=== PATIENT | female | born 1950 | race Caucasian/White ===

== ENCOUNTER 2019-04-27 10:34 | Emergency (ER) | payer OTHER, SELFPAY ==
[2019-04-27] VITALS (16 sets, daily range): BP systolic 79–150; BP diastolic 55–88; PULSE 64–83; RESP 16–22; TEMP 36.2; O2SAT 93–99
--- NOTE | 2019-04-27 11:00 | DI.RAD.S_ITS ---
PROCEDURE: XR WRIST LT MIN 3V INDICATIONS: injury TECHNIQUE: 3 views of the wrist were acquired. COMPARISON: None. FINDINGS: Bones: No fractures or dislocations. No suspicious bony lesions. Severe first CMC joint osteoarthritis. Scaphoid view: Not requested Soft tissues: No suspicious soft tissue calcifications. IMPRESSION: No fracture. No acute osseous lesion. If symptoms and/or clinical suspicion for pathology persists, further assessment with repeat radiographs (7-10 days) or advanced imaging (e.g. CT, MRI or bone scan) may be helpful. Dictated by: Mellisa Carson MD, PhD on 04/27/2019 at 11:50 Approved by: Mellisa Carson MD, PhD on 04/27/2019 at 11:52
--- NOTE | 2019-04-27 11:11 | DI.RAD.S_ITS ---
PROCEDURE: XR ELBOW LT 2V INDICATIONS: wrist pain fall TECHNIQUE: 2 views of the elbow were acquired. COMPARISON: None. FINDINGS: Bones: Displaced fracture of the proximal ulna. Nondisplaced fractures of the radial head. Soft tissues: No elbow joint effusion. No suspicious soft tissue calcifications. IMPRESSION: Proximal ulna and radial head fractures. Dictated by: Mellisa Carson MD, PhD on 04/27/2019 at 11:52 Approved by: Mellisa Carson MD, PhD on 04/27/2019 at 11:54
[2019-04-27] MEDS: HYDROMORPHONE 1 MG INJ 0.5 MG IV ×2 (11:22→12:30)
[2019-04-27] MEDS: ONDANSETRON 4 MG/2 ML INJ IV ×2 (12:55→14:53)
--- NOTE | 2019-04-27 12:56 | ED_ITS ---
HPI - Extremity Injury (Upper) General Chief Complaint: Extremity Injury, Upper Stated Complaint: Fell, hit head, states broke left arm Time Seen by Provider: 04/27/19 11:08 Source: patient Mode of arrival: wheelchair Limitations: no limitations History of Present Illness HPI narrative: Patient is a 69-year-old female who presents with left wrist and elbow pain. He was at the are noticeable when she tripped and fell landed with her underneath her. She did hit her head there was no real loss of consciousness but she did briefly pass out for about under a minute. She is not on any anti-platelet or anticoagulation medication. She has no nausea. She denies numbness or tingling in her hand. MD complaint: injury to: left and elbow Onset (ago): hour(s) Other injuries: head Related Data Home Medications Medication Instructions Recorded Confirmed ibuprofen #0 08/08/17 loratadine-pseudoephedrine 1 tab PO Q12H #0 08/08/17 [Claritin-D 12 Hour] triamterene-hydrochlorothiazid 04/27/19 Previous Rx's Medication Instructions Recorded [id number] 4 drp OTIC QID #10 ml 08/08/17 hydrocodone-acetaminophen [[place]] 1 tab PO Q4-6H PRN #14 tab 04/27/19 ondansetron 4 mg PO Q6-8H PRN #10 tab 04/27/19 Allergies Allergy/AdvReac Type Severity Reaction Status Date / Time cat dander [CAT DANDER] Allergy Unknown Verified 04/27/19 10:50 dog dander [DOG DANDER] Allergy Unknown Verified 04/27/19 10:50 Review of Systems Review of Systems ROS Unobtainable: All systems reviewed & are unremarkable except as noted in HPI and below Constitutional Denies chills, Denies fever(s), Denies lethargy and Denies weakness Eyes Denies change in vision, Denies eye discharge, Denies irritation and Denies loss of vision ENT Ears, Nose, Mouth, and Throat: Denies change in voice, Denies neck pain and Denies sore throat Cardiovascular Denies chest pain, Denies irregular heart rhythm, Denies lightheadedness, Denies palpitations, Denies dyspnea, Denies dyspnea on exertion and Denies orthopnea Respiratory Denies cough, Denies dyspnea, Denies dyspnea on exertion and Denies wheezing Gastrointestinal Gastrointestinal: Denies abdominal pain, Denies change in bowel habits, Denies diarrhea, Denies nausea and Denies vomiting Musculoskeletal Reports as per HPI and Denies neck pain Neurologic Denies loss of vision and Denies weakness Comments: No LOC Endocrine Denies palpitations Allergic/Immunologic Denies wheezing [facility] Medical History (Updated 04/27/19 @ 15:51 by Mirian Carroll DO) Patient denies significant medical history (Acute) Social History Smoking Status: Never smoker Social History Smoking Status: Never smoker Exam Initial Vital Signs Initial Vital Signs: Vital Signs Temperature 97.2 F L 04/27/19 10:44 Pulse Rate 70 04/27/19 10:44 Respiratory Rate 16 04/27/19 10:44 Blood Pressure 79/55 L 04/27/19 10:44 Pulse Oximetry 95 04/27/19 10:44 GENERAL: Well-appearing, well-nourished and in no acute distress. HEAD: Abrasion noted left periorbital area no crepitations no depression no other sign of trauma CARDIOVASCULAR: peripheral pulses in tact, cap refill <2 sec RESPIRATORY: No respiratory distress, speaks in full sentences without difficulty EXTREMITIES: Normal range of motion, no clubbing or edema. Neurovascularly intact Left upper extremity no wrist deformity actually able flex and extend wrist quite easily peripheral pulses intact. Pain at elbow. No pain at shoulder clavicle no clavicle step-offs. NEUROLOGICAL: Cranial nerves II through XII grossly intact. Normal gait and speech. SKIN: Warm, dry, no petechiae, no rashes or lesions. Procedures Orthopedic Fracture Reduction Fracture #1: Time Out Performed: Yes Side: left Fracture Reduction Location: radius and ulna Analgesia: procedural sedation Technique: direct manipulation Post-reduction neuro exam: intact and no change Post-reduction vascular exam: intact and no change Splint Applied: Yes Patient Tolerated Procedure: Well Orthopedic Splinting/Casting Injury #1: Side: left Upper Extremity Injury Location: forearm Upper Extremity Immobilizer: posterior splint Post splinting neuro exam: intact and no change Post splinting vascular exam: intact Placed by: Provider Procedural Sedation Patient Age: Patient is 5yrs or older Consent signed: Yes Time out performed: Yes Indication: fracture/dislocation reduction ASA Class: I Mallampati Airway Classification: Class I Preparation: monitoring analyst applied, pulse oximeter, capnometry used and supplemental O2 applied IV Propofol dose (mg): 50 Complications: none Course Orders Ordered: ED Orders 04/27/19 11:00 XR wrist LT min 3V Stat 04/27/19 11:11 XR elbow LT min 3V Stat 04/27/19 13:27 XR elbow LT 2V Stat Discontinued Medications Hydromorphone HCl (Dilaudid) 0.5 mg IM NOW ONE Stop: 04/27/19 11:12 Last Admin: 04/27/19 11:59 Dose: Not Given Hydromorphone HCl (Dilaudid) 0.5 mg IV NOW ONE Stop: 04/27/19 11:22 Last Admin: 04/27/19 11:22 Dose: 0.5 mg Hydromorphone HCl (Dilaudid) 0.5 mg IV NOW ONE Stop: 04/27/19 12:29 Last Admin: 04/27/19 12:30 Dose: 0.5 mg Hydromorphone HCl (Dilaudid) 1 mg IV NOW ONE Stop: 04/27/19 13:28 Last Admin: 04/27/19 13:48 Dose: 1 mg Ondansetron HCl (Zofran Odt) 4 mg SL NOW ONE Stop: 04/27/19 12:43 Last Admin: 04/27/19 13:51 Dose: Not Given Ondansetron HCl (Zofran) 4 mg IV NOW ONE Stop: 04/27/19 12:47 Last Admin: 04/27/19 12:55 Dose: 4 mg Ondansetron HCl (Zofran) 4 mg IV NOW ONE Stop: 04/27/19 14:44 Last Admin: 04/27/19 14:53 Dose: 4 mg Propofol (Diprivan) 50 mg IV NOW ONE Stop: 04/27/19 13:09 Last Admin: 04/27/19 13:22 Dose: 50 mg Consultations Consultation #1: Dr. Smith on-call orthopedics has been updated on patient's symptoms test results. Agrees with splinting and outpatient follow-up. Time: 12:55 Vital Signs - 8 hr 04/27/19 10:44 04/27/19 10:50 04/27/19 11:15 Temperature 97.2 F L Pulse Rate 70 78 82 Respiratory Rate 16 18 16 Blood Pressure 79/55 L Blood Pressure [Left Arm] 113/68 118/68 Pulse Oximetry 95 98 99 04/27/19 12:00 04/27/19 13:00 04/27/19 13:10 Temperature Pulse Rate 78 81 66 Respiratory Rate 16 16 22 Blood Pressure Blood Pressure [Left Arm] 115/66 122/65 Pulse Oximetry 99 99 04/27/19 13:17 04/27/19 13:20 04/27/19 13:25 Temperature Pulse Rate 68 64 64 Respiratory Rate 16 18 17 Blood Pressure Blood Pressure [Left Arm] 115/68 126/74 130/79 Pulse Oximetry 93 97 98 04/27/19 13:30 04/27/19 13:35 04/27/19 13:40 Temperature Pulse Rate 71 67 71 Respiratory Rate 17 16 17 Blood Pressure Blood Pressure [Left Arm] 141/64 H 143/83 H 135/88 Pulse Oximetry 99 99 99 04/27/19 13:45 04/27/19 13:50 04/27/19 14:41 Temperature Pulse Rate 81 83 74 Respiratory Rate 17 16 17 Blood Pressure Blood Pressure [Left Arm] 150/76 H 132/73 121/60 Pulse Oximetry 96 99 95 04/27/19 15:26 Temperature Pulse Rate 82 Respiratory Rate 16 Blood Pressure 117/67 Blood Pressure [Left Arm] Pulse Oximetry 98 MDM - Extremity Injury (Upper) Lab Data Point of Care Testing Test Results Not applicable Imaging Data Left elbow: Radiologist's impression: PROCEDURE: XR ELBOW LT 2V INDICATIONS: wrist pain fall TECHNIQUE: 2 views of the elbow were acquired. COMPARISON: None. FINDINGS: Bones: Displaced fracture of the proximal ulna. Nondisplaced fractures of the radial head. Soft tissues: No elbow joint effusion. No suspicious soft tissue calcifications. IMPRESSION: Proximal ulna and radial head fractures. Dictated by: Mellisa Carson MD, PhD on 04/27/2019 at 11:52 Left wrist: Radiologist's impression: PROCEDURE: XR WRIST LT MIN 3V INDICATIONS: injury TECHNIQUE: 3 views of the wrist were acquired. COMPARISON: None. FINDINGS: Bones: No fractures or dislocations. No suspicious bony lesions. Severe first CMC joint osteoarthritis. Scaphoid view: Not requested Soft tissues: No suspicious soft tissue calcifications. IMPRESSION: No fracture. No acute osseous lesion. If symptoms and/or clinical suspicion for pathology persists, further assessment with repeat radiographs (7-10 days) or advanced imaging (e.g. CT, MRI or bone scan) may be helpful. Dictated by: Mellisa Carson MD, PhD on 04/27/2019 at 11:50 Left elbow 2. : Radiologist's impression: PROCEDURE: XR ELBOW LT 2V INDICATIONS: splint/reduction TECHNIQUE: 3 views of the elbow were acquired. COMPARISON: [facility], CR, XR ELBOW LT 2V, 04/27/2019, 11:23. FINDINGS: Interval placement of an overlying splint is evident. There continues to be a transverse fracture through the proximal shaft of the ulna. An additional fracture involving the head of the radius also appears to be present. Bony alignment is unchanged with continued anterior angulation of the distal ulnar fracture fragment and posterior dislocation of the radial head fracture fragment. There is an elbow effusion. No unexpected radiopaque foreign bodies are appreciated. IMPRESSION: Unchanged alignment of a complex fracture involving the proximal ulna and radius. Dictated by: Manan Metcalf M.D. on 04/27/2019 at 13:32 MDM Narrative Medical decision making narrative: Patient having significant pain required conscious sedation for splinting. She still had pain after splinting and was given Dilaudid however all medications got up with her she was quite sleepy afterwards nauseated at times. However she did wake up was alert and able to answer questions appropriately. She was given a disc with her images. She is from out of town a [place] home state [place]. Nonetheless she is given orthopedic referral and follow-up. Discharge Plan Departure Patient Disposition: Home Clinical Impression: Closed fracture of left proximal radius and ulna Qualifiers: Encounter type: initial encounter Qualified Code(s): S52.002A - Unspecified fracture of upper end of left ulna, initial encounter for closed fracture Discharge Date/Time: 04/27/19 15:27 Interventions: ED Discharge Assessment Last Done: 04/27/19 15:26 Instructions: DI for Elbow Fracture Activity Restrictions/Additional Instructions: *You have been diagnosed with left proximal ulnar and radial fracture *What to do: Keep arm in a splint at all times. Wear sling while active sling may help you while sleeping as well. This may require surgery. Ice every 20-30 minutes through the splint Elevated *Continue to take medications as directed [place] 1 tablet every 4 hours or 2 tablets every 6 hours *Follow up with Orthopedics [employer] consultant today to schedule follow-up appointment, or see her primary care provider at home who can arrange for orthopedic follow-up *Return to ER if you should have increasing pain numbness tingling in his fingertips inability to move fingers or any new, worsening or concerning symptoms CONTROLLED SUBSTANCE DISCHARGE (Narcotoic/benzodiazepine/Flexeril/Phenergan) 1. You have been prescribed narcotic medications, it does have acetaminophen/Tylenol/paracetamol in it so do not take extra Tylenol or Tylenol containing products 2. Please understand that we cannot provide further refills of narcotics, benzodiazepines or controlled substances through the ED and her pain management will need to be through your provider. 3. While on these medications you cannot drive or operate heavy machinery. 4. You cannot sign legal documents or perform any duties such as this. 5. As long as you're taking opiate pain medications he should also be taking a stool softener such as Colace, Dulcolax, MiraLAX or prune juice, to help avoid constipation. Prescriptions: New hydrocodone-acetaminophen [[place]] 5-325 mg tablet 1 tab PO Q4-6H PRN (Reason: pain) Qty: 14 RF: 0 ondansetron 4 mg tablet,disintegrating 4 mg PO Q6-8H PRN (Reason: nausea and vomiting) Qty: 10 RF: 0 No Action loratadine-pseudoephedrine [Claritin-D 12 Hour] 5 MG/120 MG tablet extended release 12 hr 1 tab PO Q12H Qty: 0 RF: 0 ibuprofen 400 MG tablet Qty: 0 RF: 0 [id number] 10 ML drops,suspension 4 drp OTIC QID Qty: 10 RF: 0 triamterene-hydrochlorothiazid 37.5-25 mg tablet RF: 0 Referrals: [facility] [Provider Group]
[2019-04-27] MEDS: PROPOFOL 200 MG/20 ML VIAL 50 MG IV (13:22)
--- NOTE | 2019-04-27 13:27 | DI.RAD.S_ITS ---
PROCEDURE: XR ELBOW LT 2V INDICATIONS: splint/reduction TECHNIQUE: 3 views of the elbow were acquired. COMPARISON: [facility], CR, XR ELBOW LT 2V, 04/27/2019, 11:23. FINDINGS: Interval placement of an overlying splint is evident. There continues to be a transverse fracture through the proximal shaft of the ulna. An additional fracture involving the head of the radius also appears to be present. Bony alignment is unchanged with continued anterior angulation of the distal ulnar fracture fragment and posterior dislocation of the radial head fracture fragment. There is an elbow effusion. No unexpected radiopaque foreign bodies are appreciated. IMPRESSION: Unchanged alignment of a complex fracture involving the proximal ulna and radius. Dictated by: Manan Metcalf M.D. on 04/27/2019 at 13:32 Approved by: Manan Metcalf M.D. on 04/27/2019 at 13:34
[2019-04-27] MEDS: HYDROMORPHONE 1 MG INJ IV (13:48)
== END 2019-04-27 15:27 | disposition home or self-care (01) ==
PROVIDERS: Emergency Provider Emergency Medicine
DX: S52.002A Unspecified fracture of upper end of left ulna, initial encounter for closed fracture (principal); S09.90XA Unspecified injury of head, initial encounter; W01.0XXA Fall on same level from slipping, tripping and stumbling without subsequent striking against object, initial encounter
CPT/HCPCS: 24999; 29105; 36591; 73070; 73080; 73110; 94770; 96374; 96375; 96376; 99152; 99153; 99285; J1170; J2405; J2704

== ENCOUNTER 2019-04-28 12:26 | Emergency (ER) | payer OTHER, SELFPAY ==
[2019-04-28 12:30] VITALS: BP 152/77; PULSE 110; RESP 20; TEMP 36.9; O2SAT 97
--- NOTE | 2019-04-28 12:51 | ED_ITS ---
HPI - Recheck/Abnormal Lab/Rx General Chief Complaint: Recheck/Abnormal Lab/Rx Stated Complaint: recheck splint/meds/L arm injury Time Seen by Provider: 04/28/19 12:31 Source: patient Mode of arrival: wheelchair Limitations: no limitations History of Present Illness HPI narrative: Patient is 69-year-old female presenting with worsening left elbow pain. She was seen evaluated here yesterday diagnosed with proximal left radial and ulna fracture. She continues to have increased pain pain is uncontrolled despite [place]. She states the oxycodone medication makes her nauseous and vomit. She was given Zofran last night as well. She has no numbness or tingling or weakness in her fingers. Related Data Home Medications Medication Instructions Recorded Confirmed ibuprofen #0 08/08/17 loratadine-pseudoephedrine 1 tab PO Q12H #0 08/08/17 [Claritin-D 12 Hour] triamterene-hydrochlorothiazid 04/27/19 Previous Rx's Medication Instructions Recorded [id number] 4 drp OTIC QID #10 ml 08/08/17 hydrocodone-acetaminophen [[place]] 1 tab PO Q4-6H PRN #14 tab 04/27/19 ondansetron 4 mg PO Q6-8H PRN #10 tab 04/27/19 promethazine 25 mg PO Q6H PRN #10 tab 04/28/19 promethazine 25 mg DC Q6H PRN #12 each 04/28/19 Allergies Allergy/AdvReac Type Severity Reaction Status Date / Time cat dander [CAT DANDER] Allergy Unknown Verified 04/27/19 10:50 dog dander [DOG DANDER] Allergy Unknown Verified 04/27/19 10:50 Review of Systems Review of Systems GENERAL: Denies chills,fever HEENT: Denies throat pain RESPIRATORY: Denies dyspnea, cough, wheezing CARDIOVASCULAR: Denies chest pain, palpitations GASTROINTESTINAL: Denies nausea, vomiting MUSCULOSKELETAL: See HPI SKIN: No rash, no laceration, no pruritus NEUROLOGIC: Denies weakness, dizziness, headache, numbness 8 point review of systems is negative except for those stated above and HPI PFSH Medical History Patient denies significant medical history (Acute) Social History Smoking Status: Never smoker Social History Smoking Status: Never smoker Exam Initial Vital Signs Initial Vital Signs: Vital Signs Temperature 98.4 F 04/28/19 12:30 Pulse Rate 110 H 04/28/19 12:30 Respiratory Rate 20 04/28/19 12:30 Blood Pressure 152/77 H 04/28/19 12:30 Pulse Oximetry 97 04/28/19 12:30 GENERAL: Well-appearing, well-nourished and in no acute distress. CARDIOVASCULAR: peripheral pulses in tact, cap refill <2 sec RESPIRATORY: No respiratory distress, speaks in full sentences without difficulty EXTREMITIES: Normal range of motion, no clubbing or edema. Neurovascularly intact Left upper extremity in sling and splint able to move fingers cap refill less than 2 seconds NEUROLOGICAL: Cranial nerves II through XII grossly intact. Normal gait and speech. SKIN: Warm, dry, no petechiae, no rashes or lesions. Course Orders Ordered: Discontinued Medications Hydromorphone HCl (Dilaudid) 1 mg IM NOW ONE Stop: 04/28/19 12:32 Last Admin: 04/28/19 13:00 Dose: Not Given Hydromorphone HCl (Dilaudid) 1 mg IV NOW ONE Stop: 04/28/19 12:36 Last Admin: 04/28/19 12:59 Dose: 1 mg Ondansetron HCl (Zofran) 4 mg IV NOW ONE Stop: 04/28/19 12:36 Last Admin: 04/28/19 12:59 Dose: 4 mg Ondansetron HCl (Zofran) 4 mg IV NOW ONE Stop: 04/28/19 14:05 Last Admin: 04/28/19 14:07 Dose: 4 mg Ondansetron HCl (Zofran) 4 mg IV NOW ONE Stop: 04/28/19 14:05 Last Admin: 04/28/19 14:09 Dose: Not Given Consultations Consultation #1: [facility] has looked at x-rays. Patient will have surgery tomorrow as outpatient at 9:00 a.m.. Time: 13:46 Vital Signs - 8 hr 04/28/19 12:30 04/28/19 14:00 04/28/19 15:10 Temperature 98.4 F Pulse Rate 110 H 61 71 Respiratory Rate 20 16 14 Blood Pressure 152/77 H Blood Pressure [Right Arm] 157/68 H 162/79 H Pulse Oximetry 97 98 96 MDM - Recheck/Abnormal Lab/Rx MDM Narrative Medical decision making narrative: Patient is extremely sensitive to all dimitry cotic medications. She continues to be nauseous and vomit at times. She is given Zofran and Phenergan both suppository orally. I recommended she increase her pain medication to 2 tablets of [place] every 6 hours to see if that helps her. I also recommended that she take anti nausea medication at least 30 minutes prior to her pain medication. I have explained all of this to patient and her son. At this time she has no neurologic deficits she can continue to move her finger she has no numbness or tingling. Discharge Plan Departure Patient Disposition: Home Clinical Impression: Closed fracture of left proximal radius and ulna Qualifiers: Encounter type: subsequent encounter Fracture healing: with routine healing Qualified Code(s): S52.102D - Unspecified fracture of upper end of left radius, subsequent encounter for closed fracture with routine healing Discharge Date/Time: 04/28/19 15:29 Interventions: ED Discharge Assessment Last Done: 04/28/19 15:28 Instructions: DI for Elbow Fracture Activity Restrictions/Additional Instructions: SURGERY TOMORROW AT 9:00 A.M. check-in is at 8:00 a.m. at registration NOT THE EMERGENCY DEPARTMENT * do not eat or drink anything after midnight *Take medication as prescribed: [place] 2 tablets every 6 hours if needed for severe pain Zofran 8 mg 30 minutes prior to pain medication, you may take this every 6-8 hours *Dr. Smith, is the orthopedic on-call who will be performing your surgery CONTROLLED SUBSTANCE DISCHARGE (Narcotoic/benzodiazepine/Flexeril/Phenergan) 1. You have been prescribed narcotic medications, it does have olya taminophen/Tylenol/paracetamol in it so do not take extra Tylenol or Tylenol containing products 2. Please understand that we cannot provide further refills of narcotics, benzodiazepines or controlled substances through the ED and her pain management will need to be through your provider. 3. While on these medications you cannot drive or operate heavy machinery. 4. You cannot sign legal documents or perform any duties such as this. 5. As long as you're taking opiate pain medications he should also be taking a stool softener such as Colace, Dulcolax, MiraLAX or prune juice, to help avoid constipation. Prescriptions: New promethazine 25 mg suppository 25 mg DC Q6H PRN (Reason: nausea and vomiting) Qty: 12 RF: 0 promethazine 25 mg tablet 25 mg PO Q6H PRN (Reason: nausea and vomiting) Qty: 10 RF: 0 No Action loratadine-pseudoephedrine [Claritin-D 12 Hour] 5 MG/120 MG tablet extended release 12 hr 1 tab PO Q12H Qty: 0 RF: 0 ibuprofen 400 MG tablet Qty: 0 RF: 0 gjabmqll-nhoobjjlm-ZU 10 ML drops,suspension 4 drp OTIC QID Qty: 10 RF: 0 triamterene-hydrochlorothiazid 37.5-25 mg tablet RF: 0 hydrocodone-acetaminophen [[place]] 5-325 mg tablet 1 tab PO Q4-6H PRN (Reason: pain) Qty: 14 RF: 0 ondansetron 4 mg tablet,disintegrating 4 mg PO Q6-8H PRN (Reason: nausea and vomiting) Qty: 10 RF: 0 Referrals: Js Smith MD [Physician] -
[2019-04-28] MEDS: HYDROMORPHONE 1 MG INJ IV (12:59)
[2019-04-28] MEDS: ONDANSETRON 4 MG/2 ML INJ IV ×2 (12:59→14:07)
[2019-04-28 14:00] VITALS: BP 157/68; PULSE 61; RESP 16; O2SAT 98
[2019-04-28 15:10] VITALS: BP 162/79; PULSE 71; RESP 14; O2SAT 96
== END 2019-04-28 15:29 | disposition home or self-care (01) ==
PROVIDERS: Emergency Provider Emergency Medicine
DX: S52.002D Unspecified fracture of upper end of left ulna, subsequent encounter for closed fracture with routine healing (principal); W01.0XXD Fall on same level from slipping, tripping and stumbling without subsequent striking against object, subsequent encounter
CPT/HCPCS: 96374; 96375; 96376; 99282; 99284; J1170; J2405

== ENCOUNTER 2019-04-29 08:14 | Day surgery (SDC) | payer OTHER, SELFPAY ==
[2019-04-29] MEDS: LACTATED RINGERS 1,000 ML 42 ML IV (08:44)
[2019-04-29] MEDS: SCOPOLAMINE 1 PATCH TOP (08:44)
[2019-04-29 08:45] VITALS: BP 139/80; PULSE 81; RESP 18; TEMP 36.6; O2SAT 97
[2019-04-29 08:47] VITALS: BMI 23.1
--- NOTE | 2019-04-29 08:58 | PM.PREOP ---
Pre-operative Note Interval Note History & Physical reviewed/Exam performed by Physician: Yes Changes to H&P: No
--- NOTE | 2019-04-29 08:58 | PM.HP.1 ---
History of Present Illness Date Patient Seen: 04/29/19 Time Patient Seen: 08:29 [place] [facility] [place] 69-year-old female who fell off a porch landing on her left arm. Patient had deformity and pain after the fall and was brought in to the emergency room. X-ray showed a a displaced proximal ulnar fracture as well as possible injury to the radial head with posterior dislocation. Due to the injury we recommended surgical treatment. Patient denies any significant other injuries from the fall. Has some abrasions to her face but denies any injury to the right upper extremity or bilateral lower extremities Patient History Medical History Patient denies significant medical history (Acute) Social History household members: none Smoking Status: Never smoker Family & Social History Social History: household members none Prior Living Arrangements House Tobacco & Substance use: Smoking Status Never smoker alcohol intake frequency a few times a week Substance Use Type does not use Meds Home Medications Medication Instructions Recorded Confirmed Type Claritin-D 12 Hour 1 tab PO Q12H #0 08/08/17 History ibuprofen #0 08/08/17 History exypjecl-[id number]-RI 4 drp OTIC QID #10 ml 08/08/17 Rx hydrocodone-acetaminophen [Oneida] 1 tab PO Q4-6H PRN #14 tab 04/27/19 04/29/19 Rx ondansetron 4 mg PO Q6-8H PRN #10 tab 04/27/19 04/29/19 Rx triamterene-hydrochlorothiazid 04/27/19 History promethazine 25 mg PO Q6H PRN #10 tab 04/28/19 Rx promethazine 25 mg CO Q6H PRN #12 each 04/28/19 Rx Allergies Allergy/AdvReac Type Severity Reaction Status Date / Time cat dander [CAT DANDER] Allergy Unknown Verified 04/29/19 09:00 dog dander [DOG DANDER] Allergy Unknown Verified 04/27/19 10:50 IVP dye Allergy Unknown Uncoded 04/29/19 08:59 Review of Systems Review of Systems All systems reviewed & are unremarkable except as noted in HPI and below Exam Vital Signs (past 8 hours): - 04/29/19 08:45 Temperature 98 F Pulse Rate 81 Respiratory Rate 18 Blood Pressure 139/80 Pulse Oximetry 97 Oxygen Delivery Method Room Air Narrative Exam Narrative: On physical exam, 69-year-old female who is alert and oriented x3. No apparent distress. Patient is in a posterior splint immobilizing the upper extremity. Patient is able to flex and extend her fingers. As well as the thumb. Compartments are soft. No sign of any open wounds or skin breakdown. Some superficial abrasions from the fall but no open wounds. Able to move the shoulder without any significant discomfort. Nontender to palpation over the clavicle. Assessment & Plan Assessment & Plan narrative: 69-year-old female status post fall with a proximal ulna and radial fracture as well as dislocation of the radial head. Due to these injuries is something we recommend open reduction internal fixation as well as reduction of the radial head. I went over the risks and limitations associated with the procedure. All the patient's questions and concerns were answered to her full satisfaction. Risks include but not limited to wound complications, infection, failure of hardware, nonunion and malunion, damage to arteries and nerves and persistent pain. Consent form was freely obtained. Time Spent With Patient Time with patient: 15-24 minutes
--- NOTE | 2019-04-29 09:03 | P.HP_ITS ---
History of Present Illness Date Patient Seen: 04/29/19 Time Patient Seen: 08:29 [place] [facility] [place]: 69-year-old female who fell off a porch landing on her left arm. Patient had deformity and pain after the fall and was brought in to the emergency room. X-ray showed a a displaced proximal ulnar fracture as well as possible injury to the radial head with posterior dislocation. Due to the injury we recommended surgical treatment. Patient denies any significant other injuries from the fall. Has some abrasions to her face but denies any injury to the right upper extremity or bilateral lower extremities Patient History Medical History Patient denies significant medical history (Acute) Social History household members: none Smoking Status: Never smoker Family & Social History Social History: household members none Prior Living Arrangements House Tobacco & Substance use: Smoking Status Never smoker alcohol intake frequency a few times a week Substance Use Type does not use Meds Home Medications Medication Instructions Recorded Confirmed Type Claritin-D 12 Hour 1 tab PO Q12H #0 08/08/17 History ibuprofen #0 08/08/17 History ptgzcrkl-[id number]-ML 4 drp OTIC QID #10 ml 08/08/17 Rx hydrocodone-acetaminophen [Joiner] 1 tab PO Q4-6H PRN #14 tab 04/27/19 04/29/19 Rx ondansetron 4 mg PO Q6-8H PRN #10 tab 04/27/19 04/29/19 Rx triamterene-hydrochlorothiazid 04/27/19 History promethazine 25 mg PO Q6H PRN #10 tab 04/28/19 Rx promethazine [address] Q6H PRN #12 each 04/28/19 Rx Allergies Allergy/AdvReac Type Severity Reaction Status Date / Time cat dander [CAT DANDER] Allergy Unknown Verified 04/29/19 09:00 dog dander [DOG DANDER] Allergy Unknown Verified 04/27/19 10:50 IVP dye Allergy Unknown Uncoded 04/29/19 08:59 Review of Systems Review of Systems All systems reviewed & are unremarkable except as noted in HPI and below Exam Vital Signs (past 8 hours): - 04/29/19 08:45 Temperature 98 F Pulse Rate 81 Respiratory Rate 18 Blood Pressure 139/80 Pulse Oximetry 97 Oxygen Delivery Method Room Air Narrative Exam Narrative: On physical exam, 69-year-old female who is alert and oriented x3. No apparent distress. Patient is in a posterior splint immobilizing the upper extremity. Patient is able to flex and extend her fingers. As well as the thumb. Compartments are soft. No sign of any open wounds or skin breakdown. Some superficial abrasions from the fall but no open wounds. Able to move the shoulder without any significant discomfort. Nontender to palpation over the clavicle. Assessment & Plan Assessment & Plan narrative: 69-year-old female status post fall with a proximal ulna and radial fracture as well as dislocation of the radial head. Due to these injuries is something we recommend open reduction internal fixation as well as reduction of the radial head. I went over the risks and limitations associated with the procedure. All the patient's questions and concerns were answered to her full satisfaction. Risks include but not limited to wound complications, infection, failure of hardware, nonunion and malunion, damage to arteries and nerves and persistent pain. Consent form was freely obtained. Time Spent With Patient Time with patient: 15-24 minutes
[2019-04-29] MEDS: MIDAZOLAM 2 MG/2 ML VIAL IV (09:06)
[2019-04-29] MEDS: CEFAZOLIN 2 GM/100 ML FROZ.PIGGY IV (09:19)
--- NOTE | 2019-04-29 09:45 | P.PCN_ITS ---
Procedures Date/Time Date of procedure: 04/29/19 Time of procedure: 09:00 Nerve Block Time out performed: Yes Local anesthetic used: other (12mL 0.5% ropivacaine, 8mL 2% lidocaine) Location of anesthetic used: interscalene Amount of anesthesia used (mL): 20 Nerve blocks: brachial plexus (interscalene) Procedure successful: Yes Patient tolerated procedure: well Complications: none Additional comments: LEFT Brachial plexus nerve block for post operative pain management. Risks and benefits discussed, including bleeding, infection, intravascular injection, nerve damage, block failure. Standard ASA monitors, NC O2. Pt supine. Chloroprep site preparation, sterile technique. Brachial plexus identified with US guidance, traced from supraclavicular to interscalene. 1mL 2% lidocaine skin wheal. 22g x 50mm Pajunk advanced with in-plane US gu idance to brachial plexus. Negative aspiration. LA injected with intermittent negative aspiration. Good LA spread noted on US. No pain, no paraesthesia. Pt tolerated procedure well. Vital signs stable.
--- NOTE | 2019-04-29 09:52 | SUR.OPER ---
Lateral on padded OR bed with jackson bag positioner, head on pillow, gel axillary roll in place, bottom leg bent with gel pad under knee to foot, upper leg straight and supported with pillows. Operative arm under control of surgeon. Non-operative arm secured on padded arm board. Safety belt at hip, tape over blanket securing lower legs.
--- NOTE | 2019-04-29 09:52 | SUR.PREOP ---
Block start time [06] . Monitoring initiated and maintained throughout procedure. Oxygen and medications given per anesthesiologist instructions. Patient remained stable throughout procedure, no adverse reactions noted. Block end time [14]. Pt to OR in stable condition.
[2019-04-29] MEDS: BUPIVACAINE 0.5% W/ EPI (PF) VIAL 30 ML INJ (09:58)
[2019-04-29 11:07] VITALS: BP 109/61; PULSE 64; RESP 20; TEMP 36.7; O2SAT 97
[2019-04-29 11:11] VITALS: BP 122/70; PULSE 66; RESP 16; O2SAT 96
--- NOTE | 2019-04-29 11:11 | DI.RAD.S_ITS ---
PROCEDURE: XR ELBOW LT 2V INDICATIONS: s/p ORIF TECHNIQUE: 2 views of the elbow were acquired. COMPARISON: [facility], CR, XR ELBOW LT 2V, 04/27/2019, 11:23. [facility], CR, XR ELBOW LT 2V, 04/27/2019, 13:54. FINDINGS: Bones: On this postoperative study, plate and screw fixation is seen of the proximal ulna, with improved anatomic alignment. There remains a moderately displaced radial head fracture. Soft tissues: Overlying soft tissue abnormalities are seen. The overlying casting material limits evaluation of fine detail. IMPRESSION: Postoperative study, with improved anatomic alignment. A moderately displaced radial head fracture is seen. Dictated by: Gary Alva M.D. on 04/29/2019 at 10:53 Approved by: Gary Alva M.D. on 04/29/2019 at 10:55
--- NOTE | 2019-04-29 11:11 | PM.OP.1 ---
Operative Date/Time/Diagnoses Date of procedure: 04/29/19 Time of procedure: 09:00 Pre-op diagnosis: Monteggia fx of the left forearm. Patient had a comminuted proximal ulna fracture with dislocation of the proximal radial ulnar joint posterior dislocation of the radial head with a minimally displaced fracture involving the radial head. Post-op diagnosis: same Procedure & Clinicians Procedure: Open reduction internal fixation of the proximal ulna fracture. Open reduction of the radial head dislocation. Closed reduction with manipulation of the minimally displaced radial head fracture. Same procedure as scheduled: Yes Indications: Monteggia fracture left arm Surgeon: Js Smith Click Yes if Unassisted: Yes Anesthesia Type: General Operative Notes Findings: Fracture of the proximal ulna with dislocation of the proximal radial ulnar joint Closure Type: primary Specimen(s): none sent Prosthetic devices, grafts, tissues, transplants, or devices: Olecranon plate Applied: implant(s) Estimated Blood Loss (mL): 5 Blood products transfused: none Tourniquet time (min): 68 Procedure in detail: On date of service, patient was met in the holding area where her operative site was signed and witnessed by the OR staff. The surgeries once again discussed with the patient and any remaining questions or concerns she had were answered fully. Patient was taken back to the operating theater placed in the operating table in a supine position. Great care was taken to ensure that all bony prominences appropriately padded. A well-padded tourniquet was placed up along the upper extremity Time-out was performed verifying patient's name, procedure, and operative site. Patient was placed into the lateral position and a beanbag was used to secure her. Axilla roll was placed. Left arm was then prepped and draped in the normal sterile fashion. Esmarch was used to exsanguinate the limb and the tourniquet was turned up to 250 mm of mercury. Posterior incision was made starting proximal to the tip of the olecranon and following the ulnar shaft. Ten blade was used to incise through skin and fascial tissue. Electrocautery used to achieve hemostasis and then retractors were placed. Continued sharp dissection was performed releasing some of the fascial tissue from around the proximal ulna. Fracture did not involve the joint space but did involve distal to the joint. There was quite a bit of comminution. Two point reduction forceps were used to reduce the multiple fragments bringing the ulna back out to length. Blunt dissection was used to expose the radial head. We were able to reduce the radial head. There was a nondisplaced fracture involving the radial head no sign of any loose bodies between the radial head and the capitellum. The joint space was copiously irrigated to remove any soft tissue. X-rays were used to evaluate the overall alignment of the ulna as well as the radial head position. Once we were satisfied with the overall reduction with a 2 point reduction forceps of plate was provisionally fixated onto the bone and additional x-rays were obtained. Once were satisfied with the reduction as well as plate positioning, the plate was secured both distally and proximally to the fracture providing secure fixation of the comminuted proximal ulnar fracture. Throughout this procedure multiple AP and lateral views were obtained verifying maintenance of reduction as well as appropriate screw length. Final x-rays were obtained. Elbow was taken through range of motion and was felt to be stable particularly in regards to the radial head. None of the proximal screws were intra-articular. The wound was copiously irrigated and then closed in a layered fashion. Patient's arm was cleaned dried dressed and patient was placed into a posterior splint. Patient was taken to the PACU in stable condition. Complications: none Condition: stable Disposition: PACU Plan for aftercare: Patient will be in a posterior splint for 1-2 weeks. This will then be converted over to a hinged elbow brace.
[2019-04-29 11:22] VITALS: BP 140/73; PULSE 74; RESP 17; O2SAT 96
[2019-04-29 11:27] VITALS: BP 144/73; PULSE 67; RESP 16; TEMP 36.6; O2SAT 95
[2019-04-29 12:15] VITALS: BP 130/69; PULSE 65; RESP 16; TEMP 36.9; O2SAT 97
--- NOTE | 2019-04-29 12:44 | SUR.PHASEII ---
Late entry: Son and friend brought in. Discharge instructions discussed extensively with both, all voiced an understanding. Assisted pt to dress, and to use rest room. Pt left when ready and left in stable condition.
== END 2019-04-29 12:30 | disposition home or self-care (01) ==
LOC: AC 11:10 → OR 05-01 08:51
PROVIDERS: Visit Provider Orthopaedic Surgery
PROC: 0RSM04Z Reposition Left Elbow Joint with Internal Fixation Device, Open Approach (ICD-10-PCS; CPT 24635; principal; 2019-04-29 09:00)
DX: S52.272A Monteggia's fracture of left ulna, initial encounter for closed fracture (principal); G89.18 Other acute postprocedural pain; W10.8XXA Fall (on) (from) other stairs and steps, initial encounter
CPT/HCPCS: 24635; 64415; 73070; G0378; G0379; J0690; J1100; J2250; J2405; J2704; J3010

== ENCOUNTER 2022-02-15 07:13 | Emergency (ER) | payer OTHER, SELFPAY ==
[2022-02-15 07:15] VITALS: BP 167/82; PULSE 95; RESP 20; TEMP 36.8; O2SAT 93; BMI 25.8
--- NOTE | 2022-02-15 07:25 | ED.GENADULT ---
HPI - General Adult General Chief complaint: Shortness of Breath/Dyspnea Stated complaint: asthma, cant breathe Time Seen by Provider: 02/15/22 07:20 Source: patient Mode of arrival: Ambulatory History of Present Illness HPI narrative: 71-year-old woman with a history of high blood pressure, mild persistent asthma for which she typically uses daily albuterol MDI visiting from [place] and after getting off the plane began developing a significant cough. Over the last 4 days the cough has gotten worse, she is feeling a congested feeling in the upper airways cough has become productive of yellow sputum. She describes no significant fevers. She has tested multiple times for COVID and they have all been negative. She is not significantly hypoxic however with the cough she is having difficulty sleeping. She has a significant amount of nasal congestion. She has been using Sudafed, Mucinex and occasional Afrin nose spray at night to help with sleep. She does note that with her asthma her will typically continue to worsen. She denies any vomiting, diarrhea, abdominal pain. She has had no palpitations. You only chest pain that she is noticing is musculoskeletal secondary to her cough. No flank pain no dysuria. Related Data Home Medications Medication Instructions Recorded Confirmed loratadine 5 mg-pseudoephedrine ER 1 tab PO Q12H #0 08/08/17 04/29/19 120 mg tablet,extended release,12hr (Claritin-D 12 Hour) triamterene 37.5 1 tab PO DAILY PRN 04/27/19 04/29/19 mg-hydrochlorothiazide 25 mg tablet Previous Rx's Medication Instructions Recorded ondansetron 4 mg disintegrating 4 mg PO Q6-8H PRN #10 tab 04/27/19 tablet hydrocodone 5 mg-acetaminophen 325 2 tab PO Q4-6H PRN #60 tab 04/29/19 mg tablet (Knippa) hydroxyzine pamoate 25 mg capsule 25 mg PO TID-QID PRN #60 cap 04/29/19 (Vistaril) ondansetron HCl 4 mg tablet 8 mg PO BID PRN #14 tab 04/29/19 (Zofran) azithromycin 250 mg tablet See Rx Instructions .ROUTE 02/15/22 .COMPLEX #6 tab hydrocodone 5 mg-acetaminophen 325 0.5 tab PO Q6HR PRN #10 tab 05/23/22 mg tablet methylprednisolone 4 mg tablets in 4 mg PO DAILY #21 ea 02/15/22 a dose pack (Medrol (Brad)) Allergies Allergy/AdvReac Type Severity Reaction Status Date / Time cat dander [CAT DANDER] Allergy Unknown Verified 02/15/22 07:25 dog dander [DOG DANDER] Allergy Unknown Verified 02/15/22 07:25 IVP dye Allergy Unknown Uncoded 02/15/22 07:25 Review of Systems Review of Systems Narrative: Remainder of complete review of systems is otherwise unremarkable except for that included in the HPI. Patient History Medical History (Updated 02/15/22 @ 08:00 by Sushma Rosario MD) Asthma exacerbation Patient denies significant medical history Social History household members: none Smoking Status: Never smoker Smoking Status: Never smoker alcohol intake frequency: a few times a week Substance Use Type: does not use Exam Initial Vital Signs Initial Vital Signs: Vital Signs Temperature 98.3 F 02/15/22 07:15 Pulse Rate 95 H 02/15/22 07:15 Respiratory Rate 20 02/15/22 07:15 Blood Pressure 167/82 H 02/15/22 07:15 Pulse Oximetry 93 02/15/22 07:15 General: Fatigued appearing but in no acute distress. Able to give a complete and coherent history. Well-nourished well-developed HEENT: Moist mucous membranes, normal sclera with reactive pupils, Neck: No JVD, supple Respiratory: Lungs with significant rhonchi in the right base and right axillary area with minimal wheeze appreciated. Able speak in complete sentences with Full and symmetrical air movement Cardiac: Regular rate and rhythm no murmurs no bruits Abdomen: Soft, nontender, good bowel tones, no flank pain Skin: Warm and dry, no rashes Neurologic: Grossly neurologically intact with no obvious asymmetries or abnormalities Extremities: No trauma, well perfused Psych: Cooperative, appropriate insight and affect Course Orders Ordered: ED Orders 02/15/22 EKG-12 Lead Routine 02/15/22 07:20 COVID19 -Nasal RAPID/Pre-Proc Stat Vital Signs Vital signs: Vital Signs - 8 hr 02/15/22 07:15 Temperature 98.3 F Pulse Rate 95 H Respiratory Rate 20 Blood Pressure 167/82 H Pulse Oximetry 93 Medical Decision Making Lab Data Labs: Lab Results 02/15/22 Range/Units 07:20 SARS-CoV-2 (PCR) Negative (Negative) MDM Narrative Medical decision making narrative: On clinical exam Rosita has developed a right lower lobe pneumonia and her curb-65 score is 1 only because of age. She does have both MDI nebulizer at home. She is find the nebulizer is quite helpful. She is not complaining dyspnea and is not significantly hypoxic with exertion on arrival in the emergency department. Will opt to treat with outpatient antibiotics for her right lower lobe pneumonia, azithromycin. Will place her on a Medrol Dosepak and give her a small dose of oral Vicodin to use for cough suppression. There is no sign of impending respiratory distress common no dramatic wheezing, no evidence of sepsis, palpitations acute coronary syndrome and I do not suspect pulmonary embolism based on her clinical exam. Findings are all reviewed with her, questions are answered and she is safe for home discharge Discharge Plan Departure Patient Disposition: Home Clinical Impression: Asthma with exacerbation Qualifiers: Asthma severity: mild Asthma persistence: persistent Qualified Code(s): J45.31 - Mild persistent asthma with (acute) exacerbation Right lower lobe pneumonia Qualifiers: Pneumonia type: due to unspecified organism Qualified Code(s): J18.9 - Pneumonia, unspecified organism Instructions: DI for Asthma -- Adult, DI for Pneumonia -- Adult Activity Restrictions/Additional Instructions: Thank you for coming in today On clinical exam, you have a fairly classic right lower lobe pneumonia developing. For this I have given you antibiotics, azithromycin. Despite the 5 day course the antibiotic stays in your body for 10 full days With your mild asthma, I am going to place you on a Medrol dose taper. He stated you have use this before. Please continue with your albuterol MDI and nebulizer I have given you a small dose of Vicodin, this is Tylenol plus hydrocodone, which is a narcoticHalf a tablet will be very effective in helping some pressure cough. You can continue to use the Sudafed, Afrin nose spray as well as Mucinex as needed. All prescriptions have been electronically transmitted to [facility] in [place] for you to brain picker later this morning If you have worsening symptoms, please return to the ER Prescriptions: New hydrocodone-acetaminophen 5-325 mg tablet 0.5 tab PO Q6HR PRN (Reason: cough) Qty: 10 0RF azithromycin 250 mg tablet See Rx Instructions .ROUTE .COMPLEX Qty: 6 0RF Rx Instructions: For 250 mg dose pack: take 500 mg today (day 1), then 250 mg for 4 days (days 2-5) methylprednisolone [Medrol (Brad)] 4 mg tablets,dose pack 4 mg PO DAILY Qty: 21 0RF No Action Claritin-D 12 Hour 5 MG/120 MG tablet extended release 12 hr 1 tab PO Q12H Qty: 0 0RF triamterene-hydrochlorothiazid 37.5-25 mg tablet 1 tab PO DAILY PRN (Reason: swelling) 0RF ondansetron 4 mg tablet,disintegrating 4 mg PO Q6-8H PRN (Reason: nausea and vomiting) Qty: 10 0RF hydrocodone-acetaminophen [Knippa] 5-325 mg tablet 2 tab PO Q4-6H PRN (Reason: pain) Qty: 60 0RF hydroxyzine pamoate [Vistaril] 25 mg capsule 25 mg PO TID-QID PRN (Reason: spasms) Qty: 60 0RF ondansetron HCl [Zofran] 4 mg tablet 8 mg PO BID PRN (Reason: nausea and vomiting) Qty: 14 1RF
[2022-02-15 07:45] LABS: COVID19 -Nasal RAPID Negative (Negative)
[2022-02-15 08:17] VITALS: BP 167/82; PULSE 81; RESP 18; O2SAT 93
== END 2022-02-15 08:18 | disposition home or self-care (01) ==
PROVIDERS: Emergency Provider Emergency Medicine
DX: J45.31 Mild persistent asthma with (acute) exacerbation (principal); J18.9 Pneumonia, unspecified organism; Z20.822 Contact with and (suspected) exposure to COVID-19
CPT/HCPCS: 87635; 93005; 99282; 99283; C9803

== ENCOUNTER → 2023-12-15 15:42 | Outpatient (CLI) | payer MEDICARE, SELFPAY ==
--- NOTE | 2023-12-15 | DI.MRI.S_ITS ---
PROCEDURE: MR KNEE LT WO CON INDICATIONS: LEFT KNEE PAIN TECHNIQUE: Noncontrast sagittal PD fast spin echo and T2 fast spin echo with fat saturation, sagittal 3-D FLASH with fat saturation; coronal T1 spin echo and PD fast spin echo with fat saturation, and axial PD fast spin echo with fat saturation through the knee. COMPARISON: None. FINDINGS: Image quality: Excellent. Menisci: The medial meniscus is grossly intact. Complex tear involving anterior horn of lateral meniscus extending to both superior and inferior articulating surfaces are seen. The meniscal root ligaments are intact. Cruciate ligaments: The anterior cruciate ligament is thickened. The posterior cruciate ligament is intact. Medial structures: The medial collateral ligament appears thickened with surrounding soft tissue edema. Visualized portions of the pes anserinus tendons appear normal. No abnormal bursal fluid. Lateral structures: The lateral collateral ligament, long and short heads of the biceps femoris tendon appear thickened wit. The popliteus tendon is also thickened extending to musculotendinous junction. Iliotibial band appears normal. Anterior structures: Thickened distal quadriceps tendon with intrasubstance T2 hyperintense signal at its superior patellar insertion is seen. Diffusely thickened patellar tendon with intrasubstance T2 hyperintense signal is also seen. There is low to moderate grade partial-thickness tear involving medial patellofemoral ligament near its femoral insertion. Low-grade partial-thickness tear involving lateral patellofemoral ligament near its femoral insertion is also noted. Patellar alignment is normal. Edema is noted within infrapatellar fat pad. Bones and cartilage: There is marrow edema involving anterior portion of tibia extending to anterior aspect of medial and lateral tibial plateau with subtle linear hypointense signal concerning for comminuted and nondisplaced fracture involving anterior portion of proximal tibia. [id number] tricompartmental osteoarthritis and chondromalacia is seen more notably in lateral femoral tibial compartment. Joint space: There is moderate to large knee joint fluid. There is a popliteal cyst measures 2.6 x 2.8 x 5.4 cm in size. Normal appearing synovial plicae are incidentally noted. IMPRESSION: 1. Diffuse soft tissue edema and swelling around left knee. Comminuted and nondisplaced fracture involving proximal tibia extending to anterior aspect of medial and lateral tibial plateau. No significant depression of tibial plateau. 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 2. Moderate to large joint effusion and a popliteal cyst as above. No gross loose bodies. 3. Complex tear involving anterior horn of lateral meniscus extending to both superior and inferior articulating surfaces. The medial meniscus is intact. 4. Low to moderate grade ACL sprain. No ACL rupture. The PCL is intact. 5. Low-grade MCL and LCL sprain. Distal biceps femorals tendinosis. 6. Low to moderate grade distal quadriceps tendinosis/low-grade partial-thickness tear. Low to moderate grade patellar tendinosis. Low-grade partial-thickness tear involving medial and lateral patellofemoral ligaments near their femoral insertions. No full-thickness tendon or ligament rupture. Dictated by: Michael Acosta M.D. on 12/15/2023 at 21:47 Approved by: Michael Acosta M.D. on 12/15/2023 at 22:05
--- NOTE | 2023-12-15 | DI.MRI.S_ITS ---
PROCEDURE: MR FEMUR LT WO CON INDICATIONS: LEFT KNEE PAIN TECHNIQUE: Noncontrast coronal and sagittal T1 spin echo and STIR; axial T1 spin echo and T2 fast spin echo with fat saturation through the left thigh COMPARISON: [facility] [place], CR, XR KNEE 4+ VIEWS LEFT, 12/09/2023, 8:51. FINDINGS: Image quality: Excellent. Bones: Patient is status post left total hip arthroplasty. Significant susceptibility artifacts are noted from the prosthesis. No gross marrow edema. No acute fracture or dislocation. No periprosthetic fracture. No suspicious bony lesions. Soft tissues: There is questionable edema involving lateral portion of left adductor puja and brevis muscles . There is also edema involving distal portion of the vastus lateralis muscle extending to musculotendinous junction. There is also suggestion of edema involving distal vastus medialis muscle extending to musculotendinous junction. No gross full-thickness muscle or tendon rupture. No intramuscular mass or drainable fluid collection. IMPRESSION: 1. Suggestion of muscle strain/low-grade partial-thickness tear involving distal left vastus medialis and vastus lateralis muscles extending to musculotendinous junction. Suggestion of low-grade strain also seen involving lateral portion of left adductor puja and brevis muscles. No full-thickness muscle or tendon rupture. 2. No soft tissue mass or drainable fluid collection. 3. Prior left total hip arthroplasty. No gross marrow edema. No acute fracture or dislocation. No suspicious bony lesions. Dictated by: Michael Acosta M.D. on 12/15/2023 at 21:36 Approved by: Michael Acosta M.D. on 12/15/2023 at 21:47
== END ==
PROVIDERS: PCP Family Medicine; Referring Provider Orthopaedic Surgery; Visit Provider Orthopaedic Surgery
DX: S82.145A Nondisplaced bicondylar fracture of left tibia, initial encounter for closed fracture (principal); S83.272A Complex tear of lateral meniscus, current injury, left knee, initial encounter; S83.412A Sprain of medial collateral ligament of left knee, initial encounter; S83.422A Sprain of lateral collateral ligament of left knee, initial encounter; S83.512A Sprain of anterior cruciate ligament of left knee, initial encounter; S76.112A Strain of left quadriceps muscle, fascia and tendon, initial encounter; M25.462 Effusion, left knee; M71.22 Synovial cyst of popliteal space [Baker], left knee; M17.12 Unilateral primary osteoarthritis, left knee; M94.262 Chondromalacia, left knee; Z96.642 Presence of left artificial hip joint; X58.XXXA Exposure to other specified factors, initial encounter
CPT/HCPCS: 73718; 73721